=== PATIENT | male | born 1955 | race African-American/Black ===

== ENCOUNTER 2019-02-08 15:44 | Inpatient (IN) | payer MEDICARE ==
[~2019-02-08 15:44] MED LIST: ISOVUE-370 76%-LOCM 1 ML ONE
--- NOTE | 2019-02-08 16:42 | CT ---
EXAM: CT angiogram of the chest including 3-D rendering: HISTORY: Syncopal episode shortness of breath COMPARISON: None FINDINGS: There is adequate opacification of the pulmonary arteries. No evidence for aortic aneurysm or dissection. Severe bilateral pulmonary artery thrombosis including the distal main right and left pulmonary arter ies with some dilatation of the more proximal right and left pulmonary arteries and main pulmonary artery. There is evidence for right heart strain with some flattening of the intraventricular septum. No significant acute pulmonary parenchymal process. No evidence for mediastinal mass or adenopathy. No evidence for pleural or pericardial effusion. The visualized upper abdomen is unremarkable. IMPRESSION: Very extensive bilateral pulmonary embolism with right heart strain and flattening of the interventri cular septum and evidence for acute cor pulmonale Findings were discussed with Dr. Vyas at 4:37 PM CODE CR
[2019-02-08 17:55] LABS: CKMB 1.9 ng/mL (0-6.6)
[2019-02-08 19:21] VITALS: BMI 25.9
[2019-02-08] MEDS ORDERED: ADMIXTURE FEE IVPB SCH (20:45)
[2019-02-08] MEDS ORDERED: ALTEPLASE IVPB SCH (20:45)
[2019-02-08] MEDS ORDERED: Labetalol HCl 100 MG/20 ML VIAL SLOW IVP PRN (21:05)
--- NOTE | 2019-02-08 21:29 | CON ---
DATE OF CONSULTATION: 02/08/2019 SERVICE: Pulmonary Medicine. REASON FOR CONSULTATION: PE. HISTORY OF PRESENT ILLNESS: The patient is a 63-year-old male with past medical history significant for essentially nothing. He was in his usual state of health, when he had a syncopal event. He did not hit his head, and he does not think he lost consciousness. If he does, it was not for more than a split second. That being said, he woke up on the ground. Prior to this event, he was in his usual state of health. It was not preceded by any type of lightheadedness or dizziness. He was brought to the emergency department and found to be tachycardic. A CT PE protocol was immediately performed, and he had evidence of a large PE with right ventricular heart strain. As such, I was asked whether or not it would be reasonable to give him tPA under these circumstances. After his tPA, his slight shortness of breath improved, and he became much less tachycardic. He is getting closer to his usual state of health at this point. PAST MEDICAL HISTORY: 1. Hypertension. 2. Dyslipidemia. PAST SURGICAL HISTORY: None. SOCIAL HISTORY: Negative for significant alcohol, tobacco, or illicit drug use. He has no exposure to chemicals, dust, asbestos, or tuberculosis. FAMILY HISTORY: Noncontributory. ALLERGIES: NO KNOWN DRUG ALLERGIES. MEDICATIONS: List of his inpatient medications was reviewed and modified. REVEIW OF SYSTEMS: General, Head, Ears, Eyes, Nose, Throat, Cardiovascular, Respiratory, GI, , Musculoskeletal, Neurologic, and Skin are negative except as mentioned in the HPI. PHYSICAL EXAM: Vitals: Afebrile, P 120, RR 21, BP 136/82, Sat 98% on 2L NC Gen: AOx3, NAD HEENT: NC/AT, sclera white, conjunctavae pink, Oral/Nasal mucosa moist and without lesions. Lungs: CTAB. No w/r/r Heart: Tachycardic, regular. Abd: soft, nt/nd, bs+ MS: no c/c/e : no Alexander Neuro: grossly non-focal. LABORATORY DATA: WBC 5.6, hemoglobin 15.4, and platelets 140,000. Basic metabolic profile and liver function studies are unremarkable. BNP 106. Troponin is uptrending to 0.17. Urinalysis is unremarkable. IMAGIN. CT of the brain demonstrates no acute intracranial abnormality. There is no evidence of trauma in the subcutaneous tissue. 2. His chest x-ray demonstrates no acute cardiopulmonary abnormality. 3. His CTA of the chest demonstrates a large clot burden PE. There is significant reflux of contrast into the inferior vena cava. The right ventricle and right atrium are dilated out. There is even some flattening of the septum suggestive of right ventricular volume overload. ASSESSMENT: 1. Acute pulmonary embolism. 2. Acute hypoxic respiratory failure, resolved. 3. Right ventricular heart strain. 4. Lsb-XP-uzbfcrhja myocardial infarction secondary to pulmonary embolism. 5. Syncope, secondary to PE. DISCUSSION AND PLAN: Because the patient has evidence of heart dysfunction, we are calling this a submassive PE. As such, he is a candidate for tPA, provided that we do not have any contraindications. Roughly 2 hours after the administration of this medication, we will give him his first dose of Lovenox. He will be started on p.o. medications starting tomorrow morning. Pulmonary/Critical Care will continue to follow along while the patient remains in this location. Ultimately, he will require nine months of anticoagulation moving forward. 70 minutes have been devoted to this patient in various activities. I personally reviewed all imaging studies and laboratory data noted within this document. For fifty percent of this time, I was interacting with the patient at the bedside or coordinating care with the care team. For the remainder of the time I was immediately available to the patient in the hospital unit. Job ID: [id number] MTDD
[2019-02-09] MEDS ORDERED: Enoxaparin Sodium 80 MG/0.8 ML SYRINGE SC SCH (01:00)
--- NOTE | 2019-02-09 02:31 | PDOC.HHP ---
Hospitalist HPI - History of Present Illness Syncope History of Present Illness: Patient is a 63 year old male with PMH HTN who presents to ED as transfer from [place] for syncope. Patient remembers some chest pain/shortness of breath, and remembers most of episode, was sent to ED in [place] and then patient was sent here where he underwent CT angio of chest which revealed very large PE with R heart strain and acute cor pulmonale, ED discussed case with Dr Ramachandran of pulmonology, decision was made to administer tPA, patient was given tPA at appx 850 PM on 02/08/19, then was admitted to CCU for monitoring, per protocol is not to have needle sticks or recieve anticoagulation for 24 hours after tPA. Patient seen in CCU, feels well, no chest pain or shortness of breath currently , sleeping before I arrived at bedside. Dr Ramachandran of pulmonology following patient as well. Hospitalist ROS - Review of Systems Constitutional: denies: fever, chills Eyes: denies: pain, vision change, redness ENT: denies: mouth swelling, throat pain Respiratory: denies: cough, dry, shortness of breath Cardiovascular: denies: chest pain, palpitations Gastrointestinal: denies: nausea, vomiting, diarrhea Genitourinary: denies: dysuria, frequency Musculoskeletal: denies: neck pain, shoulder pain, arm pain, back pain Skin: denies: rash, lesions Neurological: denies: weakness, numbness, incoordination, change in speech, seizures All other systems reviewed; all pertinent +/- noted in HPI/Subj - Medication Medications: Active Medications Generic Name Dose Route Start Last Admin Trade Name Cliffq PRN Reason Stop Dose Admin Enoxaparin Sodium 80 mg 02/09/19 01:00 02/09/19 01:12 Lovenox SC 02/09/19 03:00 80 mg 0100 ALEKSANDER Administration Hospitalist History - Past Medical History Other Medical History: HTN - Past Surgical History Other Surgical History: Reviewed, denies - Family History Other Family History: reviewed, no pertinent FH - Social History Other Social History: drinks alcohol socially weekly smokes cigarettes - Exam General Appearance: NAD, awake alert Eye: PERRL, anicteric sclera ENT: normocephalic atraumatic, no oropharyngeal lesions, moist mucosa Neck: supple, no JVD Heart: RRR, no murmur, no gallops, no rubs Respiratory: CTAB, no wheezes, no rales, no ronchi Gastrointestinal: soft, non-tender, non-distended, normal bowel sounds Extremities: no cyanosis, no clubbing, no edema Skin: normal turgor, no lesions, no rashes Neurological: cranial nerve grossly intact, normal sensation to touch, no weakness, no focal deficits, no new deficit Musculoskeletal: normal tone, normal strength Psychiatric: normal affect, normal behavior, A&O x 3 Hospitalist Results - Labs Lab results: CK-MB (CK-2) 1.9 ng/mL (0-6.6) 02/08/19 16:56 Troponin I 0.177 ng/mL (< 0.028) H 02/08/19 16:56 B-Natriuretic Peptide 106.8 pg/mL (0-100) H 02/08/19 16:56 Additional comment: labs and imaging reviewed Hospitalist H&P A/P - Problem (1) Pulmonary embolism Code(s): I26.99 - OTHER PULMONARY EMBOLISM WITHOUT ACUTE COR PULMONALE Status : Acute Assessment and Plan: s/p tPA, evidence of cor pulmonle and R heart strain on CTA, duplex ordered and pending - appreciate Dr Ramachandran, s/p tPA on 02/08/19 at appx 850 pm - initiate anticoagulation per Dr Ramachandran recommendations or hospital protocol, defer to pulmonology and administration on this decision - DVT duplex ordered - per Dr Ramachandran, patient to get 9 months total anticoag, will need clinic follow up (2) HTN (hypertension) Code(s): I10 - ESSENTIAL (PRIMARY) HYPERTENSION Status: Acute Qualifiers: Hypertension type: essential hypertension Qualified Code(s): I10 - Essential (primary) hypertension Assessment and Plan: resume home meds
[2019-02-09] MEDS ORDERED: Ondansetron PF 4 MG/2 ML Vial IVP PRN (02:44)
[2019-02-09] MEDS ORDERED: HYDROcodone/Acetaminophen 5/325 mg Tablet PO PRN (02:44)
[2019-02-09] MEDS ORDERED: Zolpidem Tartrate 5 MG TAB PO PRN (02:44)
[2019-02-09] MEDS ORDERED: Acetaminophen 325 MG TAB PO PRN (02:44)
[2019-02-09] MEDS ORDERED: Senokot S 8.6-50 MG TAB PO PRN (02:44)
[2019-02-09 03:16] LABS: Hemoglobin 14.9 g/dL (14.0-18.0); Mean Corpuscular HGB CONC 34.4 g/dL (32.0-36.0); Mean Corpuscular Hemoglobin 32.3 pg (27.0-31.0); RBC Distribution Width 12.7 % (11.5-14.5); Red Blood Cell (RBC) Count 4.61 mill/uL (4.70-6.10); White Blood Cell (WBC) Count 9.4 thou/uL (4.8-10.8)
[2019-02-09 03:31] LABS: #Basophils 0.1 thou/uL (0.0-0.2); #Eosinphils 0.1 thou/uL (0.0-0.7); #Lymphocytes 2.4 thou/uL (1.20-3.40); #Monocytes 0.8 thou/uL (0.11-0.59); %Basophils 0.8 % (0.0-1.0); %Eosinophils 1.2 % (0.0-10.0); %Lymphocytes 25.7 % (21.0-51.0); %Neutrophils 64.3 % (42.0-75.0); Mean Platelet Volume 8.2 fL (7.4-10.4); Platelet Count 116 thou/uL (130-400); Platelet Morphology Comment Appears Decreased
[2019-02-09 03:39] LABS: Anion Gap 14 mmol/L (10-20); BUN (Urea Nitrogen) 9 mg/dL (8.4-25.7); Calc. Creatinine Clearance 109 mL/min (70-130); Carbon Dioxide 24 mmol/L (23-31); Chloride 108 mmol/L (98-107); Estimated GFR-MDRD Greater than 90; Glucose 106 mg/dL (80-115); Potassium 4.2 mmol/L (3.5-5.1); Sodium 142 mmol/L (136-145)
--- NOTE | 2019-02-09 08:26 | ULT ---
EXAM: Bilateral lower extremity venous Doppler HISTORY: Extensive bilateral pulmonary emboli noted on recent CTA of the chest on 02/08/2019. FINDINGS: Grayscale, color-flow, Doppler evaluation, spectral analysis of the bilateral lower extremities venou s structures is performed with 2-D imaging. The bilateral common femoral, superficial femoral, popliteal, posterior tibial, proximal greater saphenous and profunda femoral veins are imaged. There is increased luminal echogenicity seen in the right lower extremity popliteal vein with diminis hed flow and decreased lumen compressibility compatible with nonocclusive thrombus in the right lower extremity popliteal vein. The distal right lower extremity superficial femoral vein is not well seen on grayscale imaging, but there is normal flow demonstrated within this vein on color flow evaluation. There does appear to be normal luminal compressibility and flow in the remaining visualiz ed deep venous structures of the right lower extremity. There is normal luminal compressibility, flow, and augmentation in the visualized deep venous structu res of the left lower extremity. IMPRESSION: 1. Nonocclusive DVT right lower extremity popliteal vein. The distal right superficial femoral vein i s not well delineated, and nonocclusive thrombus at this level could not be entirely excluded. 2. No evidence of a DVT involving the visualized deep venous structures of the left lower extremity.
[2019-02-09] MEDS ORDERED: FLU VACC TS2019-20(65YR UP)/PF 180 MCG/0.5 ML SYRINGE IM ONE (09:00)
[2019-02-09] MEDS ORDERED: Prevnar 13-Val Conj/PF 0.5 ML SYRINGE IM ONE (09:00)
[2019-02-09] MEDS: Apixaban 5 MG TAB PO SCH ×2 (09:46→21:34)
--- NOTE | 2019-02-09 16:42 | PRG ---
DATE OF SERVICE: 02/09/2019 SERVICE: Pulmonary Medicine. INTERVAL HISTORY: The patient did outstanding overnight with a tPA. He denies any current shortness of breath, fevers, chills, cough, sputum production, nausea, or vomiting. Otherwise, he has returned to his usual state of health. He did not have any significant bleeding episodes. PHYSICAL EXAMINATION: VITAL SIGNS: Afebrile, pulse 91, blood pressure 154/92, respirations 29, saturation 93%, currently on room air. GENERAL: The patient is awake and alert, in no apparent distress. LUNGS: Wonderful air entry with no prolonged expiratory phase, wheezing, crackles or rhonchi. HEART: Normal rate, regular. ABDOMEN: Soft, nontender, and nondistended. Bowel sounds are positive. MUSCULOSKELETAL: No cyanosis or clubbing. No pitting in the bilateral lower extremities. NEUROLOGIC: Grossly nonfocal. LABORATORY DATA: CBC is unremarkable. Basic metabolic profile is also unremarkable. Troponin was 0.177. BNP 106. IMAGING STUDIES: Ultrasound of bilateral lower extremities demonstrates nonocclusive DVT. ASSESSMENT: 1. Acute hypoxic respiratory failure, resolved. 2. Submassive pulmonary embolism. 3. Syncope secondary to pulmonary embolism. 4. Right ventricular heart strain, likely resolved. 5. Fvq-FH-jdcaatlga myocardial infarction secondary to pulmonary embolism. 6. Obstructive sleep apnea, suspected. DISCUSSION AND PLAN: The patient did absolutely fantastic with the tPA and basically, has returned to his usual state of health. We will put him on the floor and watch him for one additional day. We will mobilize him. If he tolerates this well, he can be considered for transition home tomorrow provided that his Eliquis or other anticoagulant is covered. In the outpatient setting, I will have him see me in about 3 to 4 months and we will talk about sleep apnea and whether or not to pursue that diagnosis. If he is doing well on room air tomorrow and ambulating without difficulty, he can be considered for transition to home. Job ID: [id number]
--- NOTE | 2019-02-09 17:23 | EKG ---
Test Reason : STAT Blood Pressure : / mmHG Vent. Rate : 085 BPM Atrial Rate : 085 BPM P-R Int : 186 ms QRS Dur : 080 ms QT Int : 396 ms P-R-T Axes : 076 075 086 degrees QTc Int : 471 ms Sinus rhythm with marked sinus arrhythmia with occasional PAC's Possible Left atrial enlargement Septal infarct , age undetermined Abnormal ECG Confirmed by DR. Barry HILL (3) on 02/09/2019 5:22:51 PM Referred By: LU Confirmed By:DR. Barry HILL
--- NOTE | 2019-02-09 21:15 | PDOC.EVN ---
Event Note - Event Note Event Note: Patient seen and examined today. Doing very well. He has concerns about his ability to obtain meds. Breathing ok and feels ok otherwise.
[2019-02-10 05:33] LABS: #Basophils 0.1 thou/uL (0.0-0.2); #Eosinphils 0.1 thou/uL (0.0-0.7); #Lymphocytes 2.2 thou/uL (1.20-3.40); #Monocytes 0.7 thou/uL (0.11-0.59); #Neutrophils 5.1 thou/uL (1.40-6.50); %Basophils 0.7 % (0.0-1.0); %Eosinophils 1.4 % (0.0-10.0); %Lymphocytes 26.6 % (21.0-51.0); %Monocytes 8.8 % (0.0-10.0); %Neutrophils 62.5 % (42.0-75.0); Hemoglobin 14.4 g/dL (14.0-18.0); Mean Corpuscular HGB CONC 33.6 g/dL (32.0-36.0); Mean Corpuscular Hemoglobin 31.6 pg (27.0-31.0); Mean Platelet Volume 8.1 fL (7.4-10.4); Platelet Count 141 thou/uL (130-400); RBC Distribution Width 12.6 % (11.5-14.5); Red Blood Cell (RBC) Count 4.56 mill/uL (4.70-6.10); White Blood Cell (WBC) Count 8.1 thou/uL (4.8-10.8)
[2019-02-10 06:00] LABS: Anion Gap 15 mmol/L (10-20); BUN (Urea Nitrogen) 15 mg/dL (8.4-25.7); Calc. Creatinine Clearance 121 mL/min (70-130); Calcium 8.9 mg/dL (7.8-10.44); Carbon Dioxide 21 mmol/L (23-31); Chloride 107 mmol/L (98-107); Estimated GFR-MDRD Greater than 90; Glucose 102 mg/dL (80-115); Potassium 4.3 mmol/L (3.5-5.1); Sodium 139 mmol/L (136-145)
[2019-02-10 06:01] LABS: Troponin I 0.037 ng/mL (< 0.028)
[2019-02-10] MEDS: Apixaban 5 MG TAB PO SCH (08:36)
[2019-02-10 11:30] VITALS: BP 137/77; TEMP 99.2
--- NOTE | 2019-02-10 15:24 | PRG ---
DATE OF SERVICE: 02/10/2019 SERVICE: Pulmonary Medicine. INTERVAL HISTORY: The patient is doing outstanding from respiratory standpoint. He denies any current chest discomfort, nausea, vomiting, fevers, chills, or shortness of breath. He has been able to walk the hallways without difficulties or oxygen. Essentially, he has returned to his usual state of health. PHYSICAL EXAMINATION: VITAL SIGNS: Afebrile, pulse 72, blood pressure 146/58, respirations 18, and saturation 96% on room air. GENERAL: The patient is awake and alert, in no apparent distress. LUNGS: Wonderful air entry without any prolonged expiratory phase or wheezing present. HEART: Normal rate and regular. ABDOMEN: Soft, nontender, and nondistended. Bowel sounds positive. MUSCULOSKELETAL: No cyanosis or clubbing. No pitting in the bilateral lower extremities. NEUROLOGIC: Grossly nonfocal. LABORATORY DATA: WBC 8.1, hemoglobin 14.4, and platelets 141,000. Basic metabolic profile is unremarkable. Troponin is downtrending. BNP is downtrending. ASSESSMENT: 1. Acute hypoxic respiratory failure, resolved. 2. Acute pulmonary embolism, submassive, status post tPA with wonderful clinical response. 3. Syncope secondary to pulmonary embolism. 4. Right ventricular heart strain, resolved. 5. Brf-UV-megmnlsce myocardial infarction secondary to pulmonary embolism, improving. 6. Obstructive sleep apnea, suspected. DISCUSSION AND PLAN: The patient is stable for transition out of the hospital today. I will have him see me in clinic in 2-3 months in the outpatient setting. He will require 9 months of anticoagulation. He understands that any bleeding that is significant and stems from a place where he cannot put his finger on it to stop the bleeding, that constitutes an emergency, and he should present immediately to the emergency department. In the outpatient setting, we will investigate sleep apnea. Job ID: [id number]
--- NOTE | 2019-02-13 13:31 | DIS ---
DATE OF ADMISSION: 02/08/2019 DATE OF DISCHARGE: 02/10/2019 DISCHARGE DIAGNOSES: 1. Pulmonary embolus. 2. Right lower extremity deep vein thrombosis. 3. Hypertension. 4. Syncope. 5. Mild cough. HISTORY OF PRESENT ILLNESS: This patient is a 63-year-old male who initially presented to [facility] with an episode of syncope. He did not have full recollection of the event but thought he had some chest pain or shortness of breath prior to this episode. In the ER [facility], the patient received some IV fluids and had some initial labs and was subsequently transferred to our facility where a CT scan was performed showing PE with significant clot burden and some right heart strain. He was seen by Dr. Ramachandran initially and the patient was given tPA. HOSPITAL COURSE: The patient was admitted to the ICU following his tPA. The patient did very well. He had no further complaints or problems. He was breathing comfortably. He did have a lower extremity venogram which revealed nonocclusive DVT of the right lower extremity popliteal vein. He was subsequently started on oral anticoagulation and was felt to be stable for discharge by Pulmonology. DISCHARGE PHYSICAL EXAMINATION: VITAL SIGNS: On the day of discharge, temperature was 99.2, pulse 71, respirations 18, O2 saturation 95% on room air, BP 137/77. GENERAL: He was awake, alert, oriented, pleasant, cooperative. HEART: Regular rate and rhythm. LUNGS: Clear bilaterally. ABDOMEN: Benign. EXTREMITIES: With no edema. DISPOSITION: The patient was discharged to home. Prior to his discharge, he was an evaluated by Case Management in order to help give him some assistance with obtaining his medications through [facility]. ACTIVITY: As tolerated. DIET: He has no dietary restrictions. DISCHARGE MEDICATIONS: 1. He will be on Eliquis 5 mg 2 b.i.d. for 6 days and one p.o. b.i.d. 2. He will also be on doxycycline 100 mg b.i.d. FOLLOWUP: He will follow up with Dr. Ramachandran in 7 days and he can return to the hospital should he have any problems prior to that time. Total time in discharge activities was 36 minutes. Job ID: [id number]
[2019-02-16] MEDS ORDERED: Apixaban 5 MG TAB PO SCH (09:00)
== END 2019-02-10 12:01 | disposition home or self-care (01) | DRG 175 ==
LOC: ERS 15:44 → CCU 18:43 → 2NO 02-09 22:58
PROVIDERS: ADMIT Internal Medicine; ATTEND Internal Medicine
DX: I26.99 Other pulmonary embolism without acute cor pulmonale (principal); I21.4 Non-ST elevation (NSTEMI) myocardial infarction; J96.01 Acute respiratory failure with hypoxia; E78.5 Hyperlipidemia, unspecified; I10 Essential (primary) hypertension; I51.89 Other ill-defined heart diseases; G47.33 Obstructive sleep apnea (adult) (pediatric); F17.210 Nicotine dependence, cigarettes, uncomplicated
CPT/HCPCS: 36415; 71275; 80048; 82553; 83880; 84484; 85025; 93005; 93010; 93970; 96361; 96365; 96376; J1650; J2997; Q9966

== ENCOUNTER 2022-09-21 07:51 | Emergency (ER) | payer MEDICARE, SELFPAY ==
[2022-09-21] MEDS ORDERED: Ketorolac Tromethamine 30 MG/ML VIAL ONE (09:38)
== END 2022-09-21 09:58 | disposition home or self-care (01) ==
LOC: ERS 07:51
DX: S20.211A Contusion of right front wall of thorax, initial encounter (principal); I10 Essential (primary) hypertension; R06.2 Wheezing; F17.210 Nicotine dependence, cigarettes, uncomplicated; W10.9XXA Fall (on) (from) unspecified stairs and steps, initial encounter
CPT/HCPCS: 71046; 96372; J1885

== ENCOUNTER 2022-12-06 09:04 | Inpatient (IN) | payer MEDICARE ==
[2022-12-06 09:23] LABS: #Basophils 0.1 thou/uL (0.0-0.2); #Eosinphils 0.1 thou/uL (0.0-0.7); #Monocytes 0.9 thou/uL (0.11-0.59); #Neutrophils 3.7 thou/uL (1.40-6.50); %Basophils 0.9 % (0.0-1.0); %Eosinophils 1.4 % (0.0-10.0); %Monocytes 12.2 % (0.0-10.0); %Neutrophils 50.1 % (42.0-75.0); Hematocrit 43.4 % (42.0-52.0); Hemoglobin 14.7 g/dL (14.0-18.0); Mean Corpuscular HGB CONC 33.9 g/dL (32.0-36.0); Mean Corpuscular Hemoglobin 31.5 pg (27.0-31.0); Mean Corpuscular Volume 92.9 fl (78.0-98.0); Mean Platelet Volume 9.6 fL (7.4-10.4); Platelet Count 224 10x3/uL (130-400); RBC Distribution Width 13.1 % (11.5-14.5); Red Blood Cell (RBC) Count 4.67 mill/uL (4.70-6.10); White Blood Cell (WBC) Count 7.4 10x3/uL (4.8-10.8)
[2022-12-06 09:43] LABS: ALT (SGPT) 11 U/L (8-55); AST (SGOT) 13 U/L (5-34); Albumin 4.2 g/dL (3.4-4.8); Alkaline Phosphatase 78 U/L (40-110); Anion Gap 14 mmol/L (10-20); BUN (Urea Nitrogen) 10 mg/dL (8.4-25.7); Bilirubin, Total 0.5 mg/dL (0.2-1.2); Calc. Creatinine Clearance 0 mL/min (70-130); Calcium 9.3 mg/dL (7.8-10.44); Carbon Dioxide 22 mmol/L (23-31); Chloride 107 mmol/L (98-107); Estimated GFR 96; Globulin 3.3 g/dL (2.4-3.5); Glucose 104 mg/dL (80-115); Protein, Total 7.5 g/dL (5.8-8.1); Sodium 139 mmol/L (136-145)
[2022-12-06 09:44] LABS: Troponin I Less than 0.010 ng/mL (< 0.028)
[2022-12-06 10:01] LABS: INR-International Normal Ratio 1.3; PTT 38.4 sec (22.9-36.1); Prothrombin Time 16.8 sec (12.0-14.7)
[2022-12-06] MEDS ORDERED: Iopamidol-370 76% 500 ML MDV (1 ML CHARGE) ONE (11:48)
[2022-12-06] MEDS ORDERED: Aspirin Chewable 81 MG TAB ONE (12:20)
[2022-12-06] MEDS ORDERED: hydrALAZINE 20 MG/ML VIAL SLOW IVP PRN (13:01)
[2022-12-06] MEDS ORDERED: Ondansetron PF 4 MG/2 ML Vial IVP PRN (13:03)
[2022-12-06] MEDS ORDERED: Acetaminophen 325 MG TAB PO PRN (13:03)
[2022-12-06] MEDS ORDERED: Nicotine 21 MG PATCH TD PRN (13:03)
[2022-12-06] MEDS ORDERED: Lorazepam 1 MG TAB PO PRN (13:17)
[2022-12-06] MEDS ORDERED: Lorazepam 2 MG/ML VIAL IM PRN (13:17)
[2022-12-06] MEDS ORDERED: Folic Acid 1 MG TAB PO SCH (13:30)
[2022-12-06] MEDS ORDERED: Electrolyte Replacement Protocol 1 EACH FS SCH (13:30)
[2022-12-06] MEDS ORDERED: Multivit, Therapeutic 1 TAB PO SCH (13:30)
[2022-12-06 13:53] LABS: Phosphorus 3.2 mg/dL (2.3-4.7)
[2022-12-06 15:20] VITALS: BMI 28.0
[2022-12-06] MEDS: Atorvastatin Calcium 40 MG TAB PO SCH (21:03)
[2022-12-07 05:26] LABS: #Basophils 0.1 thou/uL (0.0-0.2); #Eosinphils 0.2 thou/uL (0.0-0.7); #Monocytes 0.8 thou/uL (0.11-0.59); #Neutrophils 3.3 thou/uL (1.40-6.50); %Basophils 0.8 % (0.0-1.0); %Eosinophils 2.3 % (0.0-10.0); %Lymphocytes 33.2 % (21.0-51.0); %Monocytes 12.4 % (0.0-10.0); %Neutrophils 51.1 % (42.0-75.0); Hematocrit 41.6 % (42.0-52.0); Hemoglobin 14.1 g/dL (14.0-18.0); Mean Corpuscular HGB CONC 33.9 g/dL (32.0-36.0); Mean Corpuscular Hemoglobin 31.3 pg (27.0-31.0); Mean Corpuscular Volume 92.4 fl (78.0-98.0); Platelet Count 220 10x3/uL (130-400); RBC Distribution Width 13.2 % (11.5-14.5); White Blood Cell (WBC) Count 6.4 10x3/uL (4.8-10.8)
[2022-12-07 05:38] LABS: Hemoglobin A1c 5.7 % (4.0-6.0)
[2022-12-07 05:57] LABS: Anion Gap 13 mmol/L (10-20); BUN (Urea Nitrogen) 11 mg/dL (8.4-25.7); Calc. Creatinine Clearance 129 mL/min (70-130); Carbon Dioxide 21 mmol/L (23-31); Cardiac Risk 6.5 (Less than 4.5); Chloride 105 mmol/L (98-107); Cholesterol 182 mg/dl (< 200 Desired); Estimated GFR 99; Glucose 102 mg/dL (80-115); HDL Cholesterol 28 mg/dL (>60 Neg Risk); LDL Cholesterol, Calculated 122 mg/dL; Potassium 4.2 mmol/L (3.5-5.1); Sodium 135 mmol/L (136-145); Triglycerides 162 mg/dL (Less than 150)
[2022-12-07] MEDS: Aspirin 81 mg Enteric Coated Tablet PO SCH (08:32)
[2022-12-07] MEDS: Multivit, Therapeutic 1 TAB PO SCH (08:33)
[2022-12-07] MEDS: Folic Acid 1 MG TAB PO SCH (08:33)
[2022-12-07] MEDS: Thiamine 100 MG TAB PO SCH (08:33)
[2022-12-07] MEDS ORDERED: Magnesium 2 GM/50 ML(in water) 2 GM in Premix Bag 1 BAG IVPB SCH (09:00)
[2022-12-07] MEDS ORDERED: Lorazepam 1 MG TAB PO PRN (13:17)
[2022-12-07] MEDS: Atorvastatin Calcium 40 MG TAB PO SCH (20:22)
[2022-12-08 05:56] LABS: Anion Gap 13 mmol/L (10-20); BUN (Urea Nitrogen) 14 mg/dL (8.4-25.7); Calc. Creatinine Clearance 114 mL/min (70-130); Calcium 9.2 mg/dL (7.8-10.44); Carbon Dioxide 24 mmol/L (23-31); Chloride 104 mmol/L (98-107); Estimated GFR 95; Glucose 109 mg/dL (80-115); Magnesium 2.1 mg/dL (1.6-2.6); Potassium 4.2 mmol/L (3.5-5.1); Sodium 137 mmol/L (136-145)
[2022-12-08] MEDS: Multivit, Therapeutic 1 TAB PO SCH (11:02)
[2022-12-08] MEDS: Thiamine 100 MG TAB PO SCH (11:03)
[2022-12-08] MEDS: Folic Acid 1 MG TAB PO SCH (11:03)
[2022-12-08] MEDS: Aspirin 81 mg Enteric Coated Tablet PO SCH (11:03)
[2022-12-08 12:19] VITALS: BP 137/76; TEMP 97.3
[2022-12-08] MEDS ORDERED: Lorazepam 1 MG TAB PO PRN (13:17)
[2022-12-08] MEDS ORDERED: Atorvastatin Calcium 40 MG TAB PO SCH (21:00)
[2022-12-09] MEDS ORDERED: Lorazepam 0.5 MG TAB PO PRN (13:17)
== END 2022-12-08 14:35 | disposition home or self-care (01) | DRG 65 ==
LOC: ERS 09:04 → 2SE 12:24
PROVIDERS: ADMIT Family Medicine; ATTEND Internal Medicine
DX: I63.9 Cerebral infarction, unspecified (principal); G81.94 Hemiplegia, unspecified affecting left nondominant side; I10 Essential (primary) hypertension; F17.220 Nicotine dependence, chewing tobacco, uncomplicated; F10.90 Alcohol use, unspecified, uncomplicated; R41.89 Other symptoms and signs involving cognitive functions and awareness; J30.9 Allergic rhinitis, unspecified; F17.210 Nicotine dependence, cigarettes, uncomplicated; Z71.6 Tobacco abuse counseling; Z79.899 Other long term (current) drug therapy; Z86.711 Personal history of pulmonary embolism; R29.704 NIHSS score 4; R29.810 Facial weakness; Z83.3 Family history of diabetes mellitus; Z79.01 Long term (current) use of anticoagulants
CPT/HCPCS: 0042T; 36415; 36416; 70450; 70496; 70498; 70551; 80048; 80053; 80061; 83036; 83735; 84100; 84443; 84484; 85025; 85610; 85730; 93005; 93306; 94760; J3475; Q9967

== ENCOUNTER 2025-03-06 12:53 | Outpatient (CLI) | payer MEDICARE, OTHER | END 2025-03-06 12:54 | disposition home or self-care (01) | LOC: BICCT 12:53 | PROVIDERS: ATTEND Family Medicine | DX: Z12.2 Encounter for screening for malignant neoplasm of respiratory organs (principal); F17.210 Nicotine dependence, cigarettes, uncomplicated | CPT/HCPCS: 71271 ==